=== PATIENT | female | born 1955 | race Caucasian/White ===

== ENCOUNTER 2016-11-14 19:16 | Emergency (ER) | payer OTHER ==
[~2016-11-14] VITALS: Ht 162.6 cm; Wt 61.2 kg
[2016-11-14] MEDS ORDERED: PAXIL10 MG PO (19:24)
[2016-11-14] MEDS ORDERED: NAPROSYN500 MG PO (20:41)
[2016-11-14] MEDS ORDERED: AUGMENTIN 875875 MG PO (20:41)
[2016-11-14] MEDS ORDERED: ULTRAM 50MG TAB50 MG PO (20:41)
[2016-11-14 21:15] VITALS: BP 158/81
== END 2016-11-14 21:15 | disposition home or self-care (01) ==
LOC: ER 19:16
DX: S31.139A Puncture wound of abdominal wall without foreign body, unspecified quadrant without penetration into peritoneal cavity, initial encounter (principal); F17.210 Nicotine dependence, cigarettes, uncomplicated; W54.0XXA Bitten by dog, initial encounter; Y93.89 Activity, other specified; Y92.89 Other specified places as the place of occurrence of the external cause; Y99.9 Unspecified external cause status